=== PATIENT | male | born 1970 | race Caucasian/White ===

== ENCOUNTER 2024-10-09 23:45 | Emergency (ER) | payer BC, SELFPAY ==
[2024-10-09 23:49] VITALS: BP 138/73; PULSE 88; TEMP 36.5; O2SAT 100; BMI 27.3
--- NOTE | 2024-10-09 23:55 | XR_ITS ---
[facility] [id number] Patient Name: MILI DELEON MRN: [id number] date: 1970 Sex: M Assigned Patient Location: ER Current Patient Location: ED.MAIN Accession/Order Number: [id number] Exam Date: 10/09/2024 23:59 Report Date: 10/10/2024 00:50 At the request of: SELMA MAO Procedure: XR hand LT min 3V XR hand LT min 3V: HISTORY: Rule out foreign body, glass, ulnar side Rule out foreign body, glass, ulnar side COMPARISON: None available. TECHNIQUE: 3 views of the left hand are submitted. FINDINGS: BONES/JOINT SPACES: There is no acute fracture or dislocation. The joint spaces are well-maintained. SOFT TISSUES: No retained radiopaque foreign bodies are present in the soft tissues. XR/XR hand LT min 3V IMPRESSION: No acute osseous injuries or retained radiopaque foreign bodies in the soft tissues. Electronically authenticated by: STEPHEN RODRIGUEZ Date: 10/10/2024 00:50
[2024-10-10] MEDS: LIDOCAINE HCL 1% 100 MG/10 ML MDV INJ ×2 (00:04→00:20)
--- NOTE | 2024-10-10 00:40 | ED.GENADUL1 ---
HPI HPI - General Adult General Chief complaint: Wound/Laceration Stated complaint: laceration Time Seen by Provider: 10/09/24 23:46 Source: patient Mode of arrival: walk-in Limitations: no limitations History of Present Illness HPI narrative: 54-year-old male presents to the emergency department for laceration to his left hand. Just before coming into the emergency department he fell and cut his hand on broken glass. He is right-handed. There was some bleeding which she controlled with pressure. No weakness or numbness and no other injury was sustained. His last tetanus was more than 10 years ago. Related Data Allergies Allergy/AdvReac Type Severity Reaction Status Date / Time No Known Drug Allergies Allergy Verified 10/09/24 23:59 Opioid HPI Opioid Management Most Recent Opioid Data: No Data to Display Review of Systems ROS Narrative A ten point review of systems is negative except as noted above. PFSH PFSH Social History Little interest or pleasure in doing things: not at all Feeling down, depressed, or hopeless: not at all Exam Narrative Exam Narrative: Nurses note and vital signs reviewed and patient is not hypoxic. General: The patient appears in no apparent distress. Patient is resting comfortably on cart. Skin: Warm, dry, no pallor noted. There is no rash noted. Head: Normocephalic, atraumatic Eye: Normal conjunctiva, no drainage Ears, Nose, Mouth, and Throat: oral mucosa is moist. Nares patent. Cardiovascular: Regular Rate and Rhythm Respiratory: Patient is in no distress, no accessory muscle use GI: Soft and nontender Musculoskeletal: The left hand is examined. There is a V-shaped laceration on the ulnar side of the hand with minimal bleeding easily controlled with pressure. The fingers have full range of motion and no other wound is present. He does not have a laceration is 4 cm in length for a total of 8 cm. Neurological: A&O, normal speech Psychiatric: Cooperative Constitutional Vital Signs, click to edit/add: Last Vital Signs Temp 97.7 F 10/09/24 23:49 Pulse 88 10/09/24 23:49 Resp 16 10/09/24 23:49 BP 138/73 10/09/24 23:49 Pulse Ox 100 10/09/24 23:49 O2 Del Method Room Air 10/09/24 23:49 Course Vital Signs Vital signs: Vital Signs Temperature 97.7 F 10/09/24 23:49 Pulse Rate 88 10/09/24 23:49 Respiratory Rate 16 10/09/24 23:49 Blood Pressure 138/73 10/09/24 23:49 Pulse Oximetry 100 10/09/24 23:49 Oxygen Delivery Method Room Air 10/09/24 23:49 Temperature 97.7 F 10/09/24 23:49 Pulse Rate 88 10/09/24 23:49 Respiratory Rate 16 10/09/24 23:49 Blood Pressure 138/73 10/09/24 23:49 Pulse Oximetry 100 10/09/24 23:49 Oxygen Delivery Method Room Air 10/09/24 23:49 Medical Decision Making MDM Narrative Medical decision making narrative: Tetanus status is updated and dressing applied. He is to have the sutures removed in 10 days and was given a work note for some restrictions. Treatment diagnosis and follow-up were discussed with the patient and his . There is no evidence of neurologic or vascular injury. Differential Diagnosis Differential Diagnosis: Laceration Imaging Data Left hand: My impression: No foreign body Discharge Plan Discharge Chief Complaint: Wound/Laceration Clinical Impression: Laceration of left hand Patient Disposition: Home, Self-Care Time of Disposition Decision: 00:40 Condition: Good Mode of Transportation: Private Vehicle Print Language: [place] Instructions: Laceration (ED) Additional Instructions: Sutures to be removed in 10 days. Referrals: Physician,Non-Staff, MD [Primary Care Provider] - 1 week Procedures ED Procedure Instructions Procedures Procedures: The following procedure was performed by me. Local infiltration was carried out with 1% lidocaine without epinephrine resulting in complete skin anesthesia. The area was prepped with Betadine x 3 and draped sterilely. It was explored for foreign bodies and none were found and then the wound was closed with a total of ten 4-0 Ethilon sutures resulting in good skin reapproximation and complete hemostasis. No complications and he tolerated the procedure well.
[2024-10-10] MEDS: ADACEL DIPH,PERTUSS(ACELL),TET VAC/PF 0.5 ML ADULT SYRINGE IM (00:52)
== END 2024-10-10 00:58 | disposition home or self-care (01) ==
PROVIDERS: Emergency Provider Emergency Medicine
DX: S61.412A Laceration without foreign body of left hand, initial encounter (principal); Z23 Encounter for immunization; W25.XXXA Contact with sharp glass, initial encounter
CPT/HCPCS: 12001; 73130; 90471; 90715; 99284